=== PATIENT | female | born 1965 | race Two or more races ===

== ENCOUNTER → 2021-04-21 | Outpatient (CLI) | payer OTHER ==
[~2021-04-21] MED LIST: ASPIRIN EC81 MG PO; CLARITIN 10MG T10 MG PO; HYDROCODONE 5 MG PO; IBUPROFEN600 MG PO; LOVASTATIN10 MG PO; METFORMIN HCL500 M1 PO; ROXICODONE5 MG PO
== END ==
LOC: MAMO 09:30
DX: Z12.39 Encounter for other screening for malignant neoplasm of breast (principal)
CPT/HCPCS: 77063; 77067

== ENCOUNTER → 2021-06-05 | Outpatient (CLI) | payer OTHER ==
[~2021-06-05] MED LIST changes: -CLARITIN 10MG T10 MG PO
== END ==
LOC: US 10:27
DX: R10.11 Right upper quadrant pain (principal); K80.20 Calculus of gallbladder without cholecystitis without obstruction; K76.0 Fatty (change of) liver, not elsewhere classified
CPT/HCPCS: 76705

== ENCOUNTER → 2021-06-25 | Day surgery (SDC) | payer OTHER ==
[~2021-06-25] MED LIST changes: +CLARITIN 10MG T10 MG PO
[2021-06-25 09:08] LABS: BUN/CREATININE RATIO 27 (0-10)
== END | disposition home or self-care (01) ==
LOC: OR 07:29
PROVIDERS: Anesthesiology
DX: K80.10 Calculus of gallbladder with chronic cholecystitis without obstruction (principal); E11.9 Type 2 diabetes mellitus without complications; Z79.84 Long term (current) use of oral hypoglycemic drugs; Z20.822 Contact with and (suspected) exposure to COVID-19; E78.5 Hyperlipidemia, unspecified; K21.9 Gastro-esophageal reflux disease without esophagitis; E66.01 Morbid (severe) obesity due to excess calories; Z88.8 Allergy status to other drugs, medicaments and biological substances; Z88.0 Allergy status to penicillin
CPT/HCPCS: 36415; 80048; 82962; 83036; J1100; J2250; J2405; J2704; J2710; J3010; J3370; J7030; J7070; J7120

== ENCOUNTER 2022-01-17 20:59 | Emergency (ER) | payer SELFPAY | END 2022-01-18 04:51 | disposition home or self-care (01) | LOC: ER1 20:59 | DX: M54.2 Cervicalgia (principal); E11.9 Type 2 diabetes mellitus without complications; Z88.0 Allergy status to penicillin; Y09 Assault by unspecified means | CPT/HCPCS: 70486; 72125; 99283 ==

== ENCOUNTER → 2022-06-11 | Outpatient (CLI) | payer OTHER | LOC: MAMO 13:30 | DX: Z12.31 Encounter for screening mammogram for malignant neoplasm of breast (principal) | CPT/HCPCS: 77063; 77067 ==